=== PATIENT | male | born 1990 | race Caucasian/White ===

== ENCOUNTER 2018-02-15 13:47 | Emergency (ER) | payer OTHER ==
[2018-02-15] MEDS: NORCO, ANEXSIA 5/325MG TABLET (HYDROcodone/ACETAMINOPHEN) PO (14:26)
== END 2018-02-15 15:57 | disposition home or self-care (01) ==
LOC: M ED 13:47
DX: Z04.1 Encounter for examination and observation following transport accident (principal); S70.01XA Contusion of right hip, initial encounter; V43.52XA Car driver injured in collision with other type car in traffic accident, initial encounter; Y92.410 Unspecified street and highway as the place of occurrence of the external cause
CPT/HCPCS: 73502